=== PATIENT | female | born 1960 | race African-American/Black ===

== ENCOUNTER 2018-03-16 16:39 | Observation (INO) | payer MEDICAID, MEDICARE ==
[~2018-03-16] VITALS: Ht 162.6 cm; Wt 67.0 kg
[2018-03-16] MEDS ORDERED: ASPIRIN 81 MG TABLET CHEW PO ONE (17:00)
[2018-03-16] MEDS ORDERED: ASPIRIN 81 MG TABLET CHEW ONE (17:13)
[2018-03-16 17:14] LABS: BASOPHILS # (AUTO) 0.12 x10^3/uL (0-0.1); BASOPHILS % (AUTO) 1 % (0-1); EOSINOPHILS # (AUTO) 0.15 x10^3/uL (0-0.4); EOSINOPHILS % (AUTO) 2 % (1-7); LYMPHOCYTES # (AUTO) 4.42 x10^3/uL (1-3.4); LYMPHOCYTES % (AUTO) 52 % (22-44); MD NO; MEAN CORPUSCULAR HEMOGLOBIN 31.2 pg (27.0-34.8); MEAN CORPUSCULAR HGB CONC 34.3 g/dL (32.4-35.8); MEAN PLATELET VOLUME 9.1 fL (7.4-10.4); MONOCYTES % (AUTO) 7 % (2-9); NEUTROPHILS # (AUTO) 3.21 x10^3/uL (1.8-6.8); NEUTROPHILS % (AUTO) 38 % (42-75); PLATELET COUNT 272 x10^3/uL (130-400); RED BLOOD COUNT 4.51 x10^6/uL (3.82-5.3); RED CELL DISTRIBUTION WIDTH 13.2 % (9.6-15.2)
[2018-03-16 17:27] LABS: ALBUMIN 3.6 g/dL (3.4-5.0); ANION GAP 8 mmol/L (5-15); CALCIUM 8.3 mg/dL (8.5-10.1); CHLORIDE 111 mmol/L (98-107)
[2018-03-16 17:33] LABS: ALANINE AMINOTRANSFERASE 31 U/L (12-78); ALKALINE PHOSPHATASE 102 U/L (45-117); BILIRUBIN,TOTAL 0.3 mg/dL (0.2-1.0); TOTAL PROTEIN 7.4 g/dL (6.4-8.2); TROPONIN I < 0.015 ng/mL (0.000-0.045)
[2018-03-16] MEDS ORDERED: NITROGLYCERIN SINGLE TAB 0.4 MG SL ONE (18:00)
[2018-03-16] MEDS ORDERED: NITROGLYCERIN SINGLE TAB 0.4 MG SL PRN (18:00)
[2018-03-16] MEDS ORDERED: ASPI-496 PO (19:26)
[2018-03-16] MEDS ORDERED: TICA90TA PO (19:26)
[2018-03-16] MEDS ORDERED: HYDR25TA11 PO (19:26)
[2018-03-16] MEDS ORDERED: SIMV20TA3 PO (19:26)
[2018-03-16] MEDS ORDERED: GLIP10TA13 PO (19:26)
[2018-03-16] MEDS ORDERED: IBUP-1223 PO (19:26)
[2018-03-16] MEDS ORDERED: SODIUM CHLORIDE FLUSH 10ML SYR IVF PRN (19:30)
[2018-03-16 21:17] VITALS: BP 153/88
[2018-03-17 01:34] VITALS: BP 158/86
[2018-03-17] MEDS ORDERED: MAALOX/HYOSCYAMINE/LIDOCAINE 45 ML BTL PO ONE ×2 (03:00→14:00)
[2018-03-17] MEDS ORDERED: ONDANSETRON 2MG/ML, 2ML IVPush PRN (03:30)
[2018-03-17 03:39] LABS: BASOPHILS # (AUTO) 0.05 x10^3/uL (0-0.1); BASOPHILS % (AUTO) 1 % (0-1); EOSINOPHILS # (AUTO) 0.12 x10^3/uL (0-0.4); EOSINOPHILS % (AUTO) 2 % (1-7); LYMPHOCYTES # (AUTO) 2.84 x10^3/uL (1-3.4); LYMPHOCYTES % (AUTO) 46 % (22-44); MD NO; MEAN CORPUSCULAR HEMOGLOBIN 31.2 pg (27.0-34.8); MEAN CORPUSCULAR HGB CONC 34.3 g/dL (32.4-35.8); MEAN PLATELET VOLUME 9.3 fL (7.4-10.4); MONOCYTES # (AUTO) 0.53 x10^3/uL (0.2-0.8); MONOCYTES % (AUTO) 9 % (2-9); NEUTROPHILS # (AUTO) 2.58 x10^3/uL (1.8-6.8); NEUTROPHILS % (AUTO) 42 % (42-75); PLATELET COUNT 243 x10^3/uL (130-400); RED BLOOD COUNT 4.21 x10^6/uL (3.82-5.3); RED CELL DISTRIBUTION WIDTH 13.2 % (9.6-15.2)
[2018-03-17 03:51] LABS: TROPONIN I < 0.015 ng/mL (0.000-0.045)
[2018-03-17] MEDS: LACTATED RINGERS 1,000 ML IV SCH ×3 (04:04→13:30)
[2018-03-17] MEDS: PANTOPRAZOLE 40 MG IV IVPush SCH ×2 (04:11→15:51)
[2018-03-17 04:15] LABS: ANION GAP 10 mmol/L (5-15); CALCIUM 8.2 mg/dL (8.5-10.1); CHLORIDE 110 mmol/L (98-107); CREATININE 0.61 mg/dL (0.55-1.02)
[2018-03-17] MEDS ORDERED: NITROGLYCERIN 0.4 MG BOTTLE (25 TABS) SL PRN (04:30)
[2018-03-17] MEDS ORDERED: POTASSIUM CHLORIDE 20 MEQ TAB.ER.PRT PO ONE (04:30)
[2018-03-17 07:54] VITALS: BP 168/94
[2018-03-17 08:50] LABS: BASOPHILS # (AUTO) 0.03 x10^3/uL (0-0.1); BASOPHILS % (AUTO) 1 % (0-1); EOSINOPHILS # (AUTO) 0.08 x10^3/uL (0-0.4); EOSINOPHILS % (AUTO) 1 % (1-7); LYMPHOCYTES # (AUTO) 2.67 x10^3/uL (1-3.4); LYMPHOCYTES % (AUTO) 45 % (22-44); MD NO; MEAN CORPUSCULAR HEMOGLOBIN 30.8 pg (27.0-34.8); MEAN CORPUSCULAR HGB CONC 33.9 g/dL (32.4-35.8); MEAN CORPUSCULAR VOLUME 90.9 fL (80-100); MEAN PLATELET VOLUME 9.6 fL (7.4-10.4); MONOCYTES # (AUTO) 0.48 x10^3/uL (0.2-0.8); MONOCYTES % (AUTO) 8 % (2-9); NEUTROPHILS # (AUTO) 2.72 x10^3/uL (1.8-6.8); NEUTROPHILS % (AUTO) 46 % (42-75); PLATELET COUNT 238 x10^3/uL (130-400); RED BLOOD COUNT 4.18 x10^6/uL (3.82-5.3); RED CELL DISTRIBUTION WIDTH 13.2 % (9.6-15.2)
[2018-03-17] MEDS ORDERED: TICAGRELOR 90 MG TABLET PO/NG SCH (09:00)
[2018-03-17 09:07] LABS: TROPONIN I < 0.015 ng/mL (0.000-0.045)
[2018-03-17] MEDS ORDERED: REGADENOSON 0.4 MG/5 ML SYRINGE ONE (11:58)
[2018-03-17] MEDS ORDERED: hydrALAzine 20 MG/ML, 1ML IV PRN (17:00)
[2018-03-17 18:47] VITALS: BP 153/88
[2018-03-17] MEDS ORDERED: SIMVASTATIN 20 MG TABLET PO SCH (21:00)
[2018-03-17] MEDS: BRILINTA 60 MG HOMEMEDPO SCH (21:00)
[2018-03-18 01:10] VITALS: BP 152/83
[2018-03-18] MEDS ORDERED: FLU VAC QS18-19(4YR UP)CEL/PF 0.5ML IM-VACC ONE (04:00)
[2018-03-18] MEDS: PANTOPRAZOLE 40 MG IV IVPush SCH ×2 (04:25→14:53)
[2018-03-18 04:50] LABS: BASOPHILS # (AUTO) 0.04 x10^3/uL (0-0.1); BASOPHILS % (AUTO) 1 % (0-1); EOSINOPHILS # (AUTO) 0.07 x10^3/uL (0-0.4); EOSINOPHILS % (AUTO) 1 % (1-7); LYMPHOCYTES % (AUTO) 45 % (22-44); MD NO; MEAN CORPUSCULAR HEMOGLOBIN 31.7 pg (27.0-34.8); MEAN CORPUSCULAR HGB CONC 34.4 g/dL (32.4-35.8); MEAN CORPUSCULAR VOLUME 92.3 fL (80-100); MEAN PLATELET VOLUME 9.4 fL (7.4-10.4); MONOCYTES # (AUTO) 0.52 x10^3/uL (0.2-0.8); MONOCYTES % (AUTO) 8 % (2-9); NEUTROPHILS % (AUTO) 45 % (42-75); PLATELET COUNT 193 x10^3/uL (130-400); RED BLOOD COUNT 3.83 x10^6/uL (3.82-5.3); RED CELL DISTRIBUTION WIDTH 13.5 % (9.6-15.2)
[2018-03-18 04:55] LABS: ANION GAP 4 mmol/L (5-15); CALCIUM 8.7 mg/dL (8.5-10.1); CHLORIDE 110 mmol/L (98-107)
[2018-03-18 04:58] LABS: CREATININE 0.78 mg/dL (0.55-1.02)
[2018-03-18] MEDS: BRILINTA 60 MG HOMEMEDPO SCH (08:07)
[2018-03-18 08:14] VITALS: BP 153/89
[2018-03-18] MEDS ORDERED: BENZONATATE 100 MG CAPSULE PO PRN (10:00)
[2018-03-18] MEDS ORDERED: MAALOX/HYOSCYAMINE/LIDOCAINE 45 ML BTL PO ONE (14:30)
[2018-03-18] MEDS ORDERED: AMLODIPINE 5 MG TABLET PO ONE (14:30)
[2018-03-18 15:11] VITALS: BP 178/78
[2018-03-18] MEDS ORDERED: AMLO5TAB7 PO (15:26)
[2018-03-18] MEDS ORDERED: PANT40VI PO (15:26)
[2018-03-18] MEDS ORDERED: PANT40TA5 PO (16:21)
[2018-03-19] MEDS ORDERED: AMLODIPINE 5 MG TABLET PO ONE (09:00)
== END 2018-03-18 17:30 | disposition home or self-care (01) ==
LOC: ED 19:53 → INTOOBSV 19:55 → EDIP 19:55 → 5SO 20:29
PROVIDERS: ADMIT Internal Medicine; ATTEND Internal Medicine
DX: R07.89 Other chest pain (principal); E11.9 Type 2 diabetes mellitus without complications; E87.6 Hypokalemia; E78.5 Hyperlipidemia, unspecified; F17.210 Nicotine dependence, cigarettes, uncomplicated; I10 Essential (primary) hypertension; I24.9 Acute ischemic heart disease, unspecified; I25.110 Atherosclerotic heart disease of native coronary artery with unstable angina pectoris; Z59.0 Homelessness; Z80.1 Family history of malignant neoplasm of trachea, bronchus and lung; Z82.49 Family history of ischemic heart disease and other diseases of the circulatory system; Z83.3 Family history of diabetes mellitus; Z95.5 Presence of coronary angioplasty implant and graft; Z23 Encounter for immunization
CPT/HCPCS: 36415; 71045; 76700; 78452; 80048; 80053; 83690; 84484; 85025; 90471; 90656; 93005; 93017; 96361; 96374; 96376; 99285; A9502; C9113; C9898; G0378; J2785; J7120; Q0177